=== PATIENT | female | born 1990 | race Caucasian/White ===

== ENCOUNTER 2016-09-02 09:36 | Emergency (ER) | payer BC, OTHER ==
[2016-09-02 10:59] VITALS: BP 120/73
--- NOTE | 2016-09-02 11:13 | UC ---
Abdominal Pain Female HPI - HPI Summary HPI Summary: nausea and vomiting x 2 days + diarrhea, mild abdominal pain and cramping, low grade fever no urinary sx - History of Current Complaint Chief Complaint: UCGeneralIllness Stated Complaint: FEVER,VOMITTING,ACHY Time Seen by Provider: 09/02/16 11:02 Hx Obtained From: Patient Hx Last Menstrual Period: 08/07/16 ?: No Onset/Duration: Gradual Onset, Lasting Days - 2, Still Present Timing: Constant Severity Initially: Moderate Severity Currently: Moderate Location: Diffuse Radiates: No Character: Colicy, Cramping Aggravating Factor(s): Nothing Alleviating Factor(s): Nothing Associated Signs and Symptoms: Positive: Decreased Appetite, Nausea, Vomiting, Diarrhea. Negative: Diaphoresis, Fever, Cough, Chest Pain, Dizzy, Back Pain, Constipation, Blood in Stool, Urinary Symptoms, Vaginal Bleeding, Vaginal Discharge Allergies/Adverse Reactions: Allergies Allergy/AdvReac Type Severity Reaction Status Date / Time No Known Allergies Allergy Verified 09/02/16 10:59 PMH/Surg Hx/FS Hx/Imm Hx Endocrine History Of: Denies: Diabetes - "high insulin", Thyroid Disease Cardiovascular History Of: Denies: Cardiac Disorders Respiratory History Of: Reports: Asthma - Surgical History Surgical History: Yes Surgery Procedure, Year, and Place: tonsils and adenoids - Family History Known Family History: Positive: Diabetes - Social History Alcohol Use: Occasionally Substance Use Type: None Smoking Status (MU): Light Every Day Tobacco Smoker Type: Cigarettes Amount Used/How Often: 1/2 pack daily Household Exposure Type: Cigarettes - Immunization History Most Recent Influenza Vaccination: no Review of Systems Constitutional: Fever, Chills, Fatigue Skin: Negative Eyes: Negative ENT: Negative Respiratory: Negative Cardiovascular: Negative Gastrointestinal: Abdominal Pain, Vomiting, Diarrhea Genitourinary: Negative All Other Systems Reviewed And Are Negative: Yes Physical Exam Triage Information Reviewed: Yes Appearance: Well-Appearing, No Pain Distress, Well-Nourished Vital Signs: Initial Vital Signs Temp 98.4 F 09/02/16 10:43 Pulse 79 09/02/16 10:43 Resp 16 09/02/16 10:43 BP 120/73 09/02/16 10:43 Pulse Ox 99 09/02/16 10:43 Vital Signs Reviewed: Yes Eye Exam: Normal Eyes: Positive: Conjunctiva Clear ENT: Positive: Normal ENT inspection, Hearing grossly normal, Pharynx normal Neck exam: Normal Neck: Positive: Supple, Nontender, No Lymphadenopathy Respiratory: Positive: Chest non-tender, Lungs clear, Normal breath sounds Cardiovascular: Positive: RRR, No Murmur, Pulses Normal Abdominal Exam: Normal Abdomen Description: Positive: Nontender, Soft. Negative: CVA Tenderness (R), CVA Tenderness (L), Distended, Guarding Bowel Sounds: Positive: Present Abd Pain Female Course/Dx - Differential Dx/Diagnosis Provider Diagnoses: gastroenteritis Discharge - Discharge Plan Condition: Stable Disposition: HOME Prescriptions: Ondansetron [Zofran 8 MG Odt] 8 mg PO Q8H #9 tab Patient Education Materials: Gastroenteritis (ED) Forms: *Work Release Referrals: Yuli Boateng PA [Primary Care Provider] - 7 Days
[2016-09-02] MEDS ORDERED: Ondansetron ODT TAB* 4 MG PO ONE (11:14)
== END 2016-09-02 11:30 | disposition home or self-care (01) ==
LOC: UCCORT 09:36
DX: K52.9 Noninfective gastroenteritis and colitis, unspecified (principal); F17.210 Nicotine dependence, cigarettes, uncomplicated
CPT/HCPCS: 81003; 84702; 99212; A9270-GY; G0463

== ENCOUNTER 2018-05-24 21:14 | Emergency (ER) | payer BC ==
[2018-05-24 21:52] VITALS: BP 108/63
[2018-05-24] MEDS ORDERED: Albuterol 2.5 MG/3 ML NEB.SOL* (0.083%) INH ONE (21:53)
[2018-05-24] MEDS ORDERED: Ibuprofen ADULT LIQ* 600 MG/30 ML UDC PO ONE (21:54)
--- NOTE | 2018-05-24 22:01 | UC ---
UC General HPI - HPI Summary HPI Summary: pt c/o sudden onset headache, bodyaches, f/c's, cough with congestion and some sob. + hx asthma. - History of Current Complaint Chief Complaint: UCGeneralIllness Stated Complaint: COUGH,ACHEY,FEVER,VOMITING Time Seen by Provider: 05/24/18 21:53 Hx Obtained From: Patient Hx Last Menstrual Period: 04/12/18 Onset/Duration: Sudden Onset Timing: Constant Pain Intensity: 8 Associated Signs & Symptoms: Negative: Chest Pain, Diarrhea, Vomiting - Allergy/Home Medications Allergies/Adverse Reactions: Allergies Allergy/AdvReac Type Severity Reaction Status Date / Time No Known Allergies Allergy Verified 05/24/18 21:53 Home Medications: Home Medications Albuterol HFA INHALER* [Ventolin HFA Inhaler*] 2 puff INH Q4H PRN 05/24/18 [ History Confirmed 05/24/18] Escitalopram Oxalate [Lexapro 10 mg] 10 mg PO DAILY 05/24/18 [History Confirmed 05/24/18] PMH/Surg Hx/FS Hx/Imm Hx Respiratory History: Asthma Psychological History: Depression - Surgical History Surgical History: None - Family History Known Family History: Positive: Non-Contributory - Social History Occupation: Employed Full-time Alcohol Use: None Substance Use Type: None Smoking Status (MU): Light Every Day Tobacco Smoker Type: Cigarettes Amount Used/How Often: 1/2 ppd Review of Systems All Other Systems Reviewed And Are Negative: Yes Constitutional: Positive: Fever, Chills Skin: Positive: Negative Eyes: Positive: Negative ENT: Positive: Sinus Congestion Respiratory: Positive: Shortness Of Breath, Cough Cardiovascular: Positive: Negative Gastrointestinal: Positive: Negative Genitourinary: Positive: Negative Motor: Positive: Negative Neurovascular: Positive: Negative Musculoskeletal: Positive: Myalgia Neurological: Positive: Headache Psychological: Positive: Negative Physical Exam Triage Information Reviewed: Yes Appearance: Ill-Appearing - but non toxic Vital Signs: Initial Vital Signs Temp 102.5 F 05/24/18 21:47 Pulse 134 05/24/18 21:47 Resp 18 05/24/18 21:47 BP 108/63 05/24/18 21:47 Pulse Ox 99 05/24/18 21:47 Eyes: Positive: Conjunctiva Clear ENT: Positive: Pharynx normal, Nasal congestion, Nasal drainage - clear Neck: Positive: Supple, Nontender, No Lymphadenopathy Respiratory: Positive: No respiratory distress, Decreased breath sounds, Wheezing, Other: - cough is congested Cardiovascular: Positive: No Murmur, Tachycardia Abdomen Description: Positive: Nontender, No Organomegaly, Soft Bowel Sounds: Positive: Present Musculoskeletal: Positive: ROM Intact Neurological: Positive: Alert Psychological: Positive: Age Appropriate Behavior Skin Exam: Normal Re-Evaluation - Re-Evaluation First Eval Re-Evaluation Time: 10:30 Change: Improved - pt notes breathing easier plus aeration improved and only an occasinal wheeze post tx Course/Dx - Course Course Of Treatment: tachycardia due to fever and influenza. - Differential Dx - Multi-Symptom Differential Diagnoses: Other - asthma, viral syndrom, influenza, pneumonia - Diagnoses Provider Diagnosis: Influenza A, Asthma Discharge - Sign-Out/Discharge Documenting (check all that apply): Patient Departure All imaging exams completed and their final reports reviewed: No Studies - Discharge Plan Condition: Stable Disposition: HOME Prescriptions: Albuterol HFA INHALER* [Ventolin HFA Inhaler*] 2 puff INH Q6H #1 mdi Oseltamivir CAP* [Tamiflu CAP*] 75 mg PO BID 5 Days #10 cap predniSONE [Prednisone 20 MG TAB] 40 mg PO DAILY 4 Days #8 tablet Patient Education Materials: Asthma (DC), Influenza (ED) Forms: *Work Release Referrals: Yuli Boateng PA [Primary Care Provider] - 5 Days - Billing Disposition and Condition Condition: STABLE Disposition: Home
[2018-05-24 22:03] LABS: Influenza A Molecular POSITIVE (Negative)
[2018-05-24] MEDS ORDERED: predniSONE TAB* 20 MG PO ONE (22:31)
[2018-05-24] MEDS ORDERED: Oseltamivir CAP* 75 MG CAP PO ONE (22:31)
== END 2018-05-24 22:42 | disposition home or self-care (01) ==
LOC: UCCORT 21:14 → MERGE 21:14 → UCCORT 22:42
DX: J10.1 Influenza due to other identified influenza virus with other respiratory manifestations (principal); R11.10 Vomiting, unspecified; J45.909 Unspecified asthma, uncomplicated; F17.210 Nicotine dependence, cigarettes, uncomplicated
CPT/HCPCS: 99213; A9270-GY; G0463; J7512

== ENCOUNTER 2019-04-30 19:29 | Emergency (ER) | payer BC ==
--- OUTSIDE RECORDS SUMMARY | 2019-04-30 19:39 | XMS REPORT | Continuity of Care Document ---
:1990 External Reference #:[id number] Author Name MICHELA Mehta (transmitted by agent of provider Reta Yo) Address [address] [place] [address] Problems Active Problems Provider Date Polycystic ovary syndrome MICHELA Mehta Onset: 09/08/2018 Note: metformin Mood disorder MICHELA Mehta Onset: 09/22/2018 Cigarette smoker MICHELA Mehta Onset: 09/22/2018 Social History Type Date Description Comments Sex Unknown Tobacco Use Start: Unknown Started at 21 yrs old ETOH Use Denies alcohol use Tobacco Use Start: Unknown End: Unknown Discussed cessation Smoking Status Reviewed: 04/08/19 Discussed cessation Allergies, Adverse Reactions, Alerts Description No Known Drug Allergies Medications Active Medications SIG Qnty Indications Ordering Provider Date Kayleigh 1 tab by mouth 28tabs E28.2 Bob 09/22/2018 0.35mg Tablets every day MD Gricelda Escitalopram Oxalate 1-2 tabs mouth 180tabs Bob 09/08/2018 10mg every day MD Gricelda Tablets Metformin HCL ER Take 1 Tablet 90tabs Bob 09/08/2018 500mg By Mouth Once MD Gricelda Tablets ER 24HR Daily Immunizations CPT Code Status Date Vaccine Lot # [id number] Given 04/08/2019 Influenza Virus Vaccine, Flu>3yr/ [id number] Quadrivalent, Split, Preservative Free Vital Signs Date Vital Result Comment 04/08/2019 8:58am Height 66.5 inches 5'6.50" Weight 208.19 lb Heart Rate 90 /min BP Systolic Sitting 114 mmHg BP Diastolic Sitting 68 mmHg O2 % BldC Oximetry 97 % BMI (Body Mass Index) 33.1 kg/m2 09/22/2018 10:42am Height 66.5 inches 5'6.50" Weight 200.31 lb Heart Rate 91 /min BP Systolic 110 mmHg BP Diastolic 70 mmHg O2 % BldC Oximetry 97 % BMI (Body Mass Index) 31.8 kg/m2 Results Description No Information Available Procedures Description No Information Available Medical Devices Description No Information Available Encounters Description No Information Available Assessments Date Code Description Provider 04/08/2019 Z30.09 Encounter for other general counseling and MICHELA Mehta advice on contraception 04/08/2019 Z23 Encounter for immunization MICHELA Mehta Plan of Treatment No Information Available Functional Status Description No Information Available Mental Status Description No Information Available Referrals Description No Information Available
[2019-04-30 19:58] VITALS: BP 108/60
[2019-04-30 20:21] LABS: Influenza A Molecular NEGATIVE (Negative); Influenza B Molecular NEGATIVE (Negative)
[2019-04-30] MEDS ORDERED: Amoxicillin PO (*) 500 MG CAP PO ONE (20:29)
--- NOTE | 2019-04-30 20:29 | UC ---
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 Was seen by her work doctor and was prescribed gentamicin eye drops for pink eye. Eye is worse. No recall of eye injury. Pt also has had a sore throat, dry cough, ear pain, congestion, fatiuge, and headache. Pt was exposed to Flu B at work." -here w/ her mom -has sinus presuer and thick nasal discharge. has ahd sinusitis in past and feels racheal same. no fevers. no pain in racheal eye. just blurry vision. denies FB. had patch on yesterday. hasnt used cool compresses. + asthma. hasnt been using inhaler. - History of Current Complaint Chief Complaint: UCGeneralIllness Stated Complaint: EYE COMPLAINT, SORE THROAT, CONGESTION Time Seen by Provider: 04/30/19 20:01 Hx Last Menstrual Period: 04/14/2019 Pain Intensity: 5 - Allergies/Home Medications Allergies/Adverse Reactions: Allergies Allergy/AdvReac Type Severity Reaction Status Date / Time No Known Allergies Allergy Verified 04/30/19 19:44 Home Medications: Home Medications Albuterol HFA INHALER* [Ventolin HFA Inhaler*] 2 puff INH Q4H PRN 04/30/19 [ History Confirmed 04/30/19] PMH/Surg Hx/FS Hx/Imm Hx Previously Healthy: Yes Respiratory History: Asthma - Surgical History Surgical History: Yes Surgery Procedure, Year, and Place: T&A - Family History Known Family History: Positive: Diabetes, Non-Contributory - Social History Alcohol Use: Occasionally Substance Use Type: None Smoking Status (MU): Light Every Day Tobacco Smoker Type: Cigarettes Amount Used/How Often: 1/2 ppd Household Exposure Type: Cigarettes - Immunization History Most Recent Influenza Vaccination: no Review of Systems All Other Systems Reviewed And Are Negative: Yes Constitutional: Positive: Fatigue Skin: Negative: Rash Eyes: Positive: Blurred Vision, Drainage, Eye Redness. Negative: Diplopia ENT: Positive: Ear Ache, Nasal Discharge, Sinus Congestion, Sinus Pain/ Tenderness Respiratory: Positive: Cough - mild. ? mild wheezing. Negative: Shortness Of Breath Cardiovascular: Positive: Negative. Negative: Palpitations, Chest Pain Gastrointestinal: Positive: Negative Genitourinary: Positive: Negative Motor: Positive: Negative Neurovascular: Positive: Negative Musculoskeletal: Positive: Negative Neurological: Positive: Negative Psychological: Positive: Negative Is Patient Immunocompromised?: No Physical Exam Triage Information Reviewed: Yes Appearance: Ill-Appearing - congested Vital Signs: Initial Vital Signs Temp 98.1 F 04/30/19 19:47 Pulse 103 04/30/19 19:47 Resp 16 04/30/19 19:47 BP 108/60 04/30/19 19:47 Pulse Ox 99 04/30/19 19:47 Eyes: Positive: Discharge - + watery d/c + scleral and conjunctoval injection. EOMI. no FB. ENT: Positive: Nasal congestion, Nasal drainage, TMs normal, Sinus tenderness - left maxillary. mild ally-orbial swelling. cool to touch. no erythema.. Negative: Tonsillar swelling, Tonsillar exudate Neck exam: Normal Neck: Positive: Supple, Nontender, No Lymphadenopathy Respiratory Exam: Normal Respiratory: Positive: Lungs clear, Normal breath sounds, No respiratory distress, No accessory muscle use. Negative: Crackles, Rhonchi, Stridor, Wheezing Cardiovascular Exam: Normal Cardiovascular: Positive: RRR Abdominal Exam: Normal Abdomen Description: Positive: Nontender, Soft Musculoskeletal Exam: Normal Neurological Exam: Normal Psychological Exam: Normal Skin Exam: Normal Skin: Negative: Rashes Respiratory Course/Dx - Course Course Of Treatment: + sinus infection likely contributing to left eye sx. steroid nasal spray. amox 500mgs x 1 here. 875mgs BID x 10 d -change to erythromycin ointment. cool compresses. --denies . not on ocp -alb prn - she has one. - Differential Dx/Diagnosis Differential Diagnosis/HQI/PQRI: Influenza, Sinusitis, Other - conjunctivitis Provider Diagnosis: Conjunctivitis, Sinusitis Discharge ED - Sign-Out/Discharge Documenting (check all that apply): Patient Departure All imaging exams completed and their final reports reviewed: No Studies - Discharge Plan Condition: Stable Disposition: HOME Prescriptions: Amoxicillin PO (*) [Amoxicillin 875 MG (*)] 875 mg PO BID #20 tab Erythromycin TOPICAL GEL* [Erythromycin OPTH OINT*] 1 applic TOPICAL TID 5 Days #1 oint Patient Education Materials: Sinusitis (ED), Conjunctivitis (ED) Referrals: Yuli Boateng PA [Primary Care Provider] - 3 Days Bob Rodriguez MD [Medical Doctor] - 2 Days Additional Instructions: Yoour eye symptoms may be related to the sinus infection. Use flonase nasal spray OTC to help relieve the inflammation in your nose and sinus and ears. -Please call the eye doctor on Thursday if your eye symptoms are not any better. Go to the ER if they worsen before that. -It is recommended that you take a probiotic daily while you are on antibiotics. A few common brands that you can buy over the counter are colon health, align and florastor. These can help prevent a colon infection called c diff that can be associated with antibiotic use. - Billing Disposition and Condition Condition: STABLE Disposition: Home
== END 2019-04-30 20:53 | disposition home or self-care (01) ==
LOC: UCCORT 19:29
DX: J32.9 Chronic sinusitis, unspecified (principal); H10.9 Unspecified conjunctivitis; J45.909 Unspecified asthma, uncomplicated; F17.210 Nicotine dependence, cigarettes, uncomplicated; Z79.899 Other long term (current) drug therapy
CPT/HCPCS: 99212; A9270-GY; G0463